=== PATIENT | male | born 1980 | race Two or more races ===

== ENCOUNTER → 2018-07-08 10:06 | Outpatient (CLI) | payer BC, SELFPAY ==
--- NOTE | 2018-07-08 10:14 | RAD_ITS ---
STUDY: X-RAY CHEST REASON FOR EXAM: Male, 38 years old. Shortness of breath, bronchitis. TECHNIQUE: PA and lateral chest COMPARISON: None. FINDINGS: The lungs are clear and expanded. Normal cardiomediastinal silhouette, francisca and pleural margins. No acute osseous or upper abdominal process. RAD/Chest PA and Lateral IMPRESSION: No acute cardiopulmonary process. There is no convincing radiographic evidence of pneumonia. Electronically Signed: Krishan Figueroa, at 11:41 EDT Tel , Service support ,
== END ==
PROVIDERS: Family Provider Family Medicine; PCP Family Medicine; Visit Provider Family Medicine
DX: J20.9 Acute bronchitis, unspecified (principal)
CPT/HCPCS: 71046

== ENCOUNTER → 2019-06-15 | Outpatient (CLI) | payer BC, SELFPAY ==
--- NOTE | 2019-06-15 | LES_PTH ---
PATIENT: NICOLE HARRIS LOC: [facility] U#:[id number] AGE/SX: 39/M ROOM: RE06/15/[address]: Dr. Eulalio Hernández MD : 1980 BED: DIS: 06/15/2019 SPEC #: [id number] RECD: 06/15/19 15:15 STATUS: MAURA KARAN #: [id number] SURY: 06/15/19 00:[address]: Eulalio Hernández DEPT: SURGICAL PATHOLOGY RECD BY: Pete Houser ENTERED: 06/16/19 10:59 SP TYPE: Lesion OTHR DR: Dr. Mery Gambino MD Tissues: Tongue, NOS Procedures: PAS Fungus (control) Special Stain Group I Surgery Specimen Level IV HEADER OPERATION: Not noted PRE-OP DIAGNOSIS: Anterior tongue lesion TISSUE SUBMITTED: Tip of tongue lesion MICROSCOPIC DIAGNOSIS Tip of tongue lesion, biopsy: Consistent with inflamed ruptured mucus cyst and pyogenic granuloma with organizing thrombus formation and reactive changes. Special stain for fungi is negative for organisms; matched control is appropriate. ESTHER:isiah 06/17/19 COMMENT Clinical correlation and appropriate follow up are necessary. Case has been reviewed in consultation with Dr. Moreno who concurs with the above diagnosis. IDC:AM MICROSCOPIC DESCRIPTION Slides are reviewed. GROSS DESCRIPTION Received in fixative is one container labeled with the patient's name and designated tongue lesion tip. The specimen consists of a chung mucosal tissue measuring 0.5 x 0.5 x 0.4 cm. The specimen is inked and submitted entirely in one cassette. It will be bisected at the time of embedding. / ESTHER:isiah 06/16/19 TC:5 CPT: 67429, 20154
== END | disposition home or self-care (01) ==
LOC: LABSPEC 17:20
PROVIDERS: Family Provider Family Medicine; PCP Family Medicine; Referring Provider Otolaryngology; Visit Provider Otolaryngology
DX: L98.9 Disorder of the skin and subcutaneous tissue, unspecified (principal)
CPT/HCPCS: 88305; 88312